=== PATIENT | female | born 1970 | race Caucasian/White ===

== ENCOUNTER 2020-10-20 00:53 | Emergency (ER) | payer BC ==
[2020-10-20 01:22] LABS: BASO % 0.4 % (0.0-1.0); EOS # 0.1 10*3/uL (0.0-0.4); EOS % 1.1 % (1.0-4.0); HEMATOCRIT 43.7 % (37.0-47.0); LYMPH # 3.5 10*3/uL (1.3-4.4); LYMPH % 37.1 % (27.0-41.0); MEAN CORPUSCULAR HGB 31.2 pg (27.0-31.0); MEAN CORPUSCULAR HGB CONC 32.5 g/dl (33.0-37.0); MEAN PLATELET VOLUME 9.2 fl (9.6-12.3); MONO # 0.5 10*3/uL (0.1-1.0); MONO % 5.5 % (3.0-9.0); NEUT # 5.3 10*3/uL (2.3-7.9); NEUT % 55.7 % (47.0-73.0); PLATELET COUNT AUTOMATED 268 10*3/uL (130-400); RED BLOOD COUNT 4.55 10*6/uL (4.10-5.10); RED CELL DISTRI WIDTH 14.1 % (0-14.5); WHITE BLOOD COUNT 9.5 10*3/uL (4.8-10.8)
[2020-10-20] MEDS ORDERED: PRAVASTATIN SOD20 MG PO (01:29)
[2020-10-20 01:41] LABS: ALBUMIN 3.1 gm/dl (3.1-4.5); ALKALINE PHOSPHATASE 123 U/L (45-117); BUN 18 mg/dl (7-24); CHLORIDE 110 mmol/L (98-107); CREATININE 0.95 mg/dL (0.55-1.02); SGOT/AST 10 IU/L (3-35); SGPT/ALT 19 U/L (12-78); SODIUM 140 mmol/L (136-145); TOTAL PROTEIN 6.9 gm/dL (6.4-8.2)
[2020-10-20 01:42] LABS: TROPONIN I < 0.015 ng/ml (<0.045)
== END 2020-10-20 02:43 | disposition home or self-care (01) ==
LOC: ED 00:53
PROVIDERS: Internal Medicine
DX: R07.89 Other chest pain (principal); F41.9 Anxiety disorder, unspecified; Z88.5 Allergy status to narcotic agent; Z79.899 Other long term (current) drug therapy

== ENCOUNTER 2021-10-26 14:13 | Emergency (ER) | payer OTHER ==
[~2021-10-26] VITALS: Ht 165.1 cm; Wt 77.1 kg
[~2021-10-26 14:13] MED LIST: PRAVASTATIN SOD20 MG PO
[2021-10-26 14:57] LABS: BASO % 0.3 % (0.0-1.0); EOS % 0.5 % (1.0-4.0); HEMATOCRIT 45.6 % (37.0-47.0); LYMPH # 2.5 10*3/uL (1.3-4.4); LYMPH % 28.5 % (27.0-41.0); MEAN CELL VOLUME 94.8 fl (81.0-99.0); MEAN CORPUSCULAR HGB 31.6 pg (27.0-31.0); MEAN CORPUSCULAR HGB CONC 33.3 g/dl (33.0-37.0); MEAN PLATELET VOLUME 9.4 fl (9.6-12.3); MONO # 0.5 10*3/uL (0.1-1.0); MONO % 5.5 % (3.0-9.0); NEUT # 5.6 10*3/uL (2.3-7.9); PLATELET COUNT AUTOMATED 274 10*3/uL (130-400); RED BLOOD COUNT 4.81 10*6/uL (4.10-5.10); RED CELL DISTRI WIDTH 13.3 % (0-14.5); WHITE BLOOD COUNT 8.6 10*3/uL (4.8-10.8)
[2021-10-26 15:14] LABS: ALKALINE PHOSPHATASE 153 U/L (45-117); BUN 12 mg/dl (7-24); CHLORIDE 114 mmol/L (98-107); CREATININE 1.05 mg/dL (0.55-1.02); LIPASE 95 U/L (73-393); POTASSIUM 4.2 mmol/L (3.5-5.1); SGOT/AST 14 IU/L (3-35); SGPT/ALT 16 U/L (12-78); SODIUM 141 mmol/L (136-145); TOTAL PROTEIN 7.8 gm/dL (6.4-8.2)
[2021-10-26] MEDS ORDERED: PERCOCET 5-3251 EACH PO (20:00)
[2021-10-26 20:10] LABS: BILIRUBIN Negative (Negative); BLOOD 3+ (Negative); CLARITY Clear (Clear); COLOR Yellow (Yellow); GLUCOSE Negative (Negative); KETONE Trace (Negative); LEUKO ESTERASE Negative (Negative); NITRITE Negative (Negative); PH 5.5 (4.5-8.0); SPECIFIC GRAVITY 1.015 (1.001-1.030)
[2021-10-26 20:23] LABS: RBC 21-30 rbc/hpf (0-2)
== END 2021-10-26 19:29 | disposition home or self-care (01) ==
LOC: ED 14:13
PROVIDERS: Emergency Medicine
DX: N20.0 Calculus of kidney (principal)

== ENCOUNTER 2021-11-19 03:23 | Emergency (ER) | payer OTHER ==
[~2021-11-19] VITALS: Ht 160 cm; Wt 85.9 kg
[~2021-11-19 03:23] MED LIST changes: +PERCOCET 5-3251 EACH PO
[2021-11-19 04:10] LABS: BILIRUBIN Negative (Negative); BLOOD 2+ (Negative); CLARITY Cloudy (Clear); COLOR Yellow (Yellow); GLUCOSE Negative (Negative); KETONE Trace (Negative); LEUKO ESTERASE Trace (Negative); NITRITE Negative (Negative); SPECIFIC GRAVITY 1.025 (1.001-1.030)
[2021-11-19 04:25] LABS: EPITHELIAL CELLS 41-50
[2021-11-19 04:26] LABS: BACTERIA 1+; RBC 31-40 rbc/hpf (0-2)
== END 2021-11-19 06:34 | disposition home or self-care (01) ==
LOC: ED 03:23
PROVIDERS: Internal Medicine
DX: N20.0 Calculus of kidney (principal); Q89.3 Situs inversus; Z88.1 Allergy status to other antibiotic agents; Z88.8 Allergy status to other drugs, medicaments and biological substances; Z79.899 Other long term (current) drug therapy

== ENCOUNTER 2023-06-28 15:26 | Emergency (ER) | payer MEDICAID ==
[~2023-06-28] VITALS: Ht 165.1 cm; Wt 83.9 kg
[2023-06-28] MEDS ORDERED: Acetaminophen/Oxycodone 5 MG/325 MG TABLET PO ONE (15:55)
[2023-06-28] MEDS ORDERED: Ondansetron Hydrochloride 4 MG TAB PO ONE (16:05)
[2023-06-28] MEDS ORDERED: HYDROmorphONE Hydrochloride 1 MG/ML SYR IM ONE (18:00)
== END 2023-06-28 17:25 | disposition home or self-care (01) ==
LOC: ED 15:26
DX: S09.90XA Unspecified injury of head, initial encounter (principal); M54.2 Cervicalgia; E78.00 Pure hypercholesterolemia, unspecified; Z88.5 Allergy status to narcotic agent; Z88.2 Allergy status to sulfonamides; Z88.8 Allergy status to other drugs, medicaments and biological substances; Z90.710 Acquired absence of both cervix and uterus; Z90.49 Acquired absence of other specified parts of digestive tract; W01.198A Fall on same level from slipping, tripping and stumbling with subsequent striking against other object, initial encounter; Y93.89 Activity, other specified; Y92.89 Other specified places as the place of occurrence of the external cause; Y99.8 Other external cause status